=== PATIENT | male | born 1940 | race Caucasian/White ===

== ENCOUNTER 2016-12-27 15:55 | Observation (INO) | payer OTHER ==
[~2016-12-27] VITALS: Ht 162.6 cm; Wt 70.5 kg
[~2016-12-27 15:55] MED LIST: ASPIR 8181 M1 PO; Aspirin E.C. PO; BYSTOLIC20 MG PO; CARBIDOPA/LEVO1 EACH PO; CLONIDINE HCL0.2 MG PO; COZAAR100 MG PO; FLEXERIL5 MG PO; HYDROCHLOROTH12.5 M3 PO; KEFLEX500 MG PO; LOSARTAN-HCTZ1 EAC2 PO; Norvasc PO; SINEMET 25-1001 EACH PO; SKELAXIN800 MG PO; Sinemet 25-100 PO; ULTRAM50 MG PO; VITAMIN B12-FO1 EACH PO; VITAMIN B122500 MCG PO; ZOFRAN4 MG PO
[2016-12-27 17:07] LABS: HEMATOCRIT 38.5 % (38.0-50.0); MCH 30.4 PG (29.0-34.0); MCHC 34.8 G/DL (30.0-36.0); MCV 87.3 FL (86-99); MEAN PLAT.VOLUME 9.4 uM^3 (9.0-12.4); PLATELET COUNT 221 K/uL (156-360); RBC DIS.WIDTH-CV 13.1 % (11.8-14.6); RBC DIS.WIDTH-SD 41.7 % (39-53); RED BLOOD COUNT 4.41 M/uL (4.00-5.50); WHITE BLOOD COUNT 6.4 K/uL (4.1-10.2)
[2016-12-27 17:18] LABS: CHLORIDE 96 mEq/L (99-109); POTASSIUM 3.3 mEq/L (3.7-5.4); SODIUM 130 mEq/L (136-147)
[2016-12-27 17:20] LABS: GLUCOSE 135 mg/dL (70-99)
[2016-12-27 17:21] LABS: ANION GAP 13 MEQ/L (2-14)
[2016-12-27 17:23] LABS: GFR ESTIMATE (CALCULATED) > 59 mL/min/
[2016-12-27 17:24] LABS: UREA NITROGEN (BUN) 9 mg/dL (9-23)
[2016-12-27 17:53] LABS: ADD MIUA? YES; BILIRUBIN NEGATIVE; BLOOD SMALL; COLOR STRAW ((YELLOW)); GLUCOSE (STRIP) NEGATIVE; KETONES NEGATIVE; LEUKOCYTES NEGATIVE; NITRITE NEGATIVE; PROTEIN (STRIP) NEGATIVE; SPECIFIC GRAVITY 1.003 (1.000-1.030); UROBILINOGEN 0.2 MG/DL (0.2-1.0)
[2016-12-27 18:00] LABS: BACTERIA NONE SEEN /HPF; EPITHELIAL CELLS NONE SEEN /HPF; MUCUS NONE SEEN /LPF; RED BLOOD CELLS 0-5 /HPF (0-5); UCUL ADDED? NO; WHITE BLOOD CELLS NONE SEEN /HPF (0-5)
[2016-12-27 19:22] LABS: TROP-I INTERPRETATION NEGATIVE; TROPONIN-I < 0.01 ng/mL (0.0-0.30)
[2016-12-27] MEDS ORDERED: BYSTOLIC10 MG PO (23:10)
[2016-12-27] MEDS ORDERED: CYANOCOBALAM1000 MCG PO (23:12)
[2016-12-27] MEDS ORDERED: METAMUCIL PACKE1 PKT PO (23:15)
[2016-12-28 00:45] VITALS: BP 187/95
[2016-12-28 04:02] VITALS: BP 130/70
[2016-12-28 04:59] LABS: HEMATOCRIT 35.3 % (38.0-50.0); MCH 29.8 PG (29.0-34.0); MCHC 34.3 G/DL (30.0-36.0); MCV 86.9 FL (86-99); MEAN PLAT.VOLUME 9.7 uM^3 (9.0-12.4); PLATELET COUNT 200 K/uL (156-360); RBC DIS.WIDTH-SD 41.1 % (39-53); RED BLOOD COUNT 4.06 M/uL (4.00-5.50); WHITE BLOOD COUNT 6.2 K/uL (4.1-10.2)
[2016-12-28 05:21] LABS: TROP-I INTERPRETATION NEGATIVE; TROPONIN-I < 0.01 ng/mL (0.0-0.30)
[2016-12-28 05:27] LABS: CHLORIDE 101 mEq/L (99-109); SODIUM 132 mEq/L (136-147)
[2016-12-28 05:29] LABS: GLUCOSE 92 mg/dL (70-99); POTASSIUM 4.5 mEq/L (3.7-5.4)
[2016-12-28 05:30] LABS: ANION GAP 9 MEQ/L (2-14)
[2016-12-28 05:33] LABS: GFR ESTIMATE (CALCULATED) > 59 mL/min/
[2016-12-28 05:34] LABS: UREA NITROGEN (BUN) 9 mg/dL (9-23)
[2016-12-28 06:57] VITALS: BP 176/89
[2016-12-28 12:36] VITALS: BP 171/84
[2016-12-28 13:38] LABS: TROP-I INTERPRETATION NEGATIVE; TROPONIN-I < 0.01 ng/mL (0.0-0.30)
== END 2016-12-28 14:45 | disposition home or self-care (01) ==
LOC: EME 15:55 → EDOF 23:37 → 5WEST 12-28 00:20
PROVIDERS: Hospitalist
DX: R55 Syncope and collapse (principal); I16.0 Hypertensive urgency; I10 Essential (primary) hypertension; E86.0 Dehydration; R07.9 Chest pain, unspecified; R51 Headache; I25.10 Atherosclerotic heart disease of native coronary artery without angina pectoris; Z95.5 Presence of coronary angioplasty implant and graft; G20 Parkinson's disease; R42 Dizziness and giddiness
CPT/HCPCS: 71010; 80048; 81003; 84484; 85027; 93005; 99281; 99285; G0378; J1650; J7120